=== PATIENT | male | born 1975 | race Caucasian/White ===

== ENCOUNTER 2023-10-08 09:09 | Inpatient (IN) | payer OTHER ==
[2023-10-08 09:57] VITALS: BMI 27.6
[2023-10-08] MEDS ORDERED: BISMUTH SUBSALICYLATE 262 MG/15 ML BTL PO PRN (10:56)
[2023-10-08] MEDS ORDERED: NALOXONE HCL (KLOXXADO) 8 MG SPRAY NS PRN (10:56)
[2023-10-08] MEDS ORDERED: BENZOCAINE/MENTHOL (CHLORASEPTIC ) LOZENGE MM PRN (10:56)
[2023-10-08] MEDS ORDERED: ACETAMINOPHEN 325 MG TABLET (FP) PO PRN (10:56)
[2023-10-08] MEDS ORDERED: guaiFENesin 600 MG TABLET.ER (FP) PO PRN (10:56)
[2023-10-08] MEDS ORDERED: NALOXONE HCL 0.4 MG/ML VIAL IM PRN (10:56)
[2023-10-08] MEDS ORDERED: LOPERAMIDE HCL 2 MG CAPSULE PO PRN (10:56)
[2023-10-08] MEDS ORDERED: MAG HYDROX/AL HYDROX/SIMETH 30 ML UNIT-DOSE CUP PO PRN (10:56)
[2023-10-08] MEDS ORDERED: MAGNESIUM HYDROX 2400MG/30ML ORAL SUSPENSION 30 ML CUP PO PRN (10:56)
[2023-10-08] MEDS ORDERED: BENZONATATE 200 MG CAPSULE PO PRN (10:56)
[2023-10-08] MEDS ORDERED: IBUPROFEN 400 MG TABLET (FP) PO PRN (10:56)
[2023-10-08] MEDS ORDERED: POLYETHYLENE GLYCOL (HEALTHYLAX) 3350 17 GM PACKET PO PRN (10:56)
[2023-10-08] MEDS ORDERED: ONDANSETRON *ODT* 4 MG TABLET SL PRN (10:56)
[2023-10-08] MEDS ORDERED: IBUPROFEN 600 MG TABLET (FP) PO PRN (10:56)
[2023-10-08] MEDS ORDERED: DICYCLOMINE HCL 10 MG CAPSULE PO PRN (10:56)
[2023-10-08] MEDS ORDERED: CLONAZEPAM 0.5 MG PO PRN (10:58)
[2023-10-08] MEDS ORDERED: PRENATAL VITAMINS W/ FOLIC ACID TABLET (FP) PO ONE (11:11)
[2023-10-08] MEDS: PRENATAL VITAMINS W/ FOLIC ACID TABLET (FP) PO SCH (11:14)
[2023-10-08] MEDS ORDERED: NICOTINE 21 MG/24 HOURS TOPICAL PATCH ONE (11:29)
[2023-10-08] MEDS: NICOTINE 14 MG/24 HOURS TOPICAL PATCH TD SCH (11:40)
[2023-10-08] MEDS: INSULIN (NOVOLOG) ASPART 100 UNITS/ML 10ML VIAL SQ ONE (12:15)
[2023-10-08] MEDS: INSULIN ASPART SLIDING SCALE (NOVOLOG) 1 VIAL SQ SCH (16:53)
[2023-10-08] MEDS ORDERED: INSULIN (NOVOLOG) ASPART 100 UNITS/ML 10ML VIAL ONE (17:51)
[2023-10-08] MEDS: MELATONIN 5 MG TABLETS PO SCH (22:33)
[2023-10-08] MEDS: THIAMINE 100 MG TABLET PO SCH (22:33)
[2023-10-09] MEDS: EMPAGLIFLOZIN (JARDIANCE) 25 MG TABLET PO SCH (06:12)
[2023-10-09] MEDS: metFORMIN HCL 500 MG TABLET (FP) PO SCH (06:12)
[2023-10-09 07:03] VITALS: RESP 16
[2023-10-09] MEDS: NICOTINE 14 MG/24 HOURS TOPICAL PATCH TD SCH (10:04)
[2023-10-09] MEDS: hydrOXYzine PAMOATE 25 MG CAPSULE (FP) PO PRN (10:08)
[2023-10-09] MEDS: METHOCARBAMOL 500 MG TABLET PO PRN (10:09)
[2023-10-09 12:01] LABS: HEMATOCRIT 38.7 % (35.4-49); HEMOGLOBIN 13.6 GM/dL (11.7-16.9); MCH 33.4 pg (25.7-33.7); MCHC 35.2 g/dl (32.0-35.9); MEAN CELL VOLUME 94.9 fl (80-96); MEAN PLT VOLUME 7.9 fl (7.5-11.1); PLATELET COUNT 245 10^3/uL (134-434); RBC 4.08 M/mm3 (4.00-5.60); WHITE BLOOD COUNT 6.3 K/mm3 (4.0-10.0)
[2023-10-09 12:15] LABS: BLOOD UREA NITROGEN 12.1 mg/dL (7-18); CALCIUM 9.4 mg/dL (8.5-10.1)
[2023-10-09 12:17] LABS: CREATININE 1.1 mg/dL (0.55-1.3); TOT PROT 6.9 g/dl (6.4-8.2)
[2023-10-09 12:21] LABS: BILIRUBIN,TOTAL 0.3 mg/dL (0.2-1)
[2023-10-09] MEDS: clonazePAM 0.5 MG ODT TABLETS SL PRN (17:15)
[2023-10-09] MEDS ORDERED: lamoTRIgine 100 MG TABLET PO SCH (22:00)
[2023-10-09] MEDS: LAMOTRIGINE 100 MG, LAMOTRIGINE 50 MG PO SCH (22:46)
[2023-10-09] MEDS: PALIPERIDONE 6 MG TAB.ER.24 PO SCH (22:46)
[2023-10-09] MEDS: SERTRALINE HCL 50 MG TABLET (FP) PO SCH (22:46)
[2023-10-10 06:29] VITALS: BP 124/78; PULSE 65; TEMP 97.8
== END 2023-10-10 09:03 | disposition home or self-care (01) | DRG 773 ==
LOC: YASAS 09:09 → Y6N 11:58
PROVIDERS: ADMIT Allergy & Immunology; ATTEND Surgery
PROC: HZ2ZZZZ Detoxification Services for Substance Abuse Treatment (ICD-10-PCS; principal; 2023-10-08)
DX: F11.20 Opioid dependence, uncomplicated (principal); F13.20 Sedative, hypnotic or anxiolytic dependence, uncomplicated; F15.10 Other stimulant abuse, uncomplicated; F17.290 Nicotine dependence, other tobacco product, uncomplicated; F31.9 Bipolar disorder, unspecified; F25.9 Schizoaffective disorder, unspecified; E11.9 Type 2 diabetes mellitus without complications; Z79.84 Long term (current) use of oral hypoglycemic drugs; Z88.8 Allergy status to other drugs, medicaments and biological substances
CPT/HCPCS: 36415; 80053; 80305; 80307; 82962; 83036; 85027; 86780; 93005; 93010